=== PATIENT | male | born 1995 | race African-American/Black ===

== ENCOUNTER 2019-09-09 17:25 | Inpatient (IN) | payer MEDICAID ==
[~2019-09-09] VITALS: Ht 177.8 cm; Wt 70.3 kg
[2019-09-09] MEDS ORDERED: DOCU-141 PO (17:57)
--- NOTE | 2019-09-09 19:30 | NUR ---
TELE/RN PM OPENING NOTE REPORT RECIEVED FROM KAPIL COOPER. NO ORDERS YET FOR PATIENT. PATIENT ADMITTED EARLIER FROM [facility], PT SEEN HE IS ALERT AND ORIENTED X 4. PATIENT WITH CHEST TUBE WATER SEALED IN PLACE TO LEFT UPPER MID CHEST, IV ACCESS AT RIGHT AC # 22G PATENT AND INTACT HERE FOR DIAGNOSIS OF SPONTANEOUS PNEUMOTHORAX. PATIENT IN NO APPARENT RESPIRATORY DISTRESS ON 4LNC PATIENT HAS PRODUCTIVE COUGH AND IS USING SXN TO CLEAR ORAL AIRWAY INDEPENDENTLY. BED IN LOWEST POSITION AND LOCKED SIDE RAILS UP X2. CALL LIGHT WITH IN REACH. [facility].
--- NOTE | 2019-09-09 19:32 | NUR ---
TELE/RN CLOSING NOTES PATIENT WAS DIRECT ADMITTED FROM [facility], GET REPORT PATIENT IS ALERT AND ORIENTED X 4. INITIAL SKIN ASSESSMENT WAS INITIATED. PATIENT WITH CHEST TUBE WATER SEALED IN PLACE, IV ACCESS AT RIGHT AC # 22G PATENT AND INTACT, ALLERGY TO SHELL FISH. DIAGNOSIS OF SPONTANEOUS PNEUMOTHORAX. PATIENT IN NO APPARENT RESPIRATORY DISTRESS NOTED. BED IN LOWEST POSITION AND LOCKED SIDE RAILS UP X2. CALL LIGHT WITH IN REACH. STILL WAITING FOR MD ORDER. WILL ENDORSED TO MINE DEVELOPMENT ENGINEER FOR GARY.
--- NOTE | 2019-09-09 19:42 | NUR ---
wrecking supervisor Boubacar Mcwilliams in to see the patient. states he will be writing new orders soon.
[2019-09-09 20:00] VITALS: BP 136/62
[2019-09-09] MEDS ORDERED: ONDANSETRON HCL/PF 4 MG/2 ML VIAL IVP PRN (20:00)
[2019-09-09] MEDS ORDERED: MAGNESIUM HYDROXIDE 30 ML UDC PO PRN (20:00)
[2019-09-09] MEDS ORDERED: MAG HYDROX/AL HYDROX/SIMETH 30 ML UDC PO PRN (20:00)
[2019-09-09] MEDS ORDERED: Z GUARD REMEDY 2 OZ OINT TP PRN (20:00)
[2019-09-09] MEDS ORDERED: ZOLPIDEM TARTRATE 5 MG TABLET PO PRN (20:00)
[2019-09-09] MEDS ORDERED: ACETAMINOPHEN 325 MG TABLET PO PRN (20:00)
--- NOTE | 2019-09-09 20:29 | NUR ---
PATIENT TRANSFERRED TO [facility]. SCD APPLIED.
--- NOTE | 2019-09-09 21:45 | NUR ---
patient straight cathed 550 ml urine out.
[2019-09-09] MEDS: HYDROCODONE/APAP 10/325MG 1 EA TABLET PO PRN (22:00)
--- NOTE | 2019-09-09 22:06 | NUR ---
danie administered prn patient request for back pain 08/16.
[2019-09-09 23:15] VITALS: BP 114/56
[2019-09-09] MEDS ORDERED: PIPERACILLIN /TAZOBACTAM 3.375 G VIAL IV ONE (23:59)
[2019-09-10] MEDS ORDERED: PIPERACILLIN /TAZOBACTAM 3.375 G in IV D5W 50 ML IV SCH ×2
[2019-09-10] MEDS: ZOSYN IVPB 3.375 G in IV D5W 50ml IV SCH ×2 (00:11→05:25)
[2019-09-10] MEDS: HYDROCODONE/APAP 10/325MG 1 EA TABLET PO PRN ×3 (02:15→19:48)
[2019-09-10] MEDS ORDERED: PIPERACILLIN /TAZOBACTAM 3.375 G VIAL IV ONE (04:58)
--- NOTE | 2019-09-10 05:51 | NUR ---
patient straight cathed and produced 500 ml urine out.
--- NOTE | 2019-09-10 06:24 | NUR ---
TELE/RN PM CLOSING NOTE PT SEEN HE IS ALERT AND ORIENTED X 4. PATIENT WITH CHEST TUBE WATER SEALED IN PLACE TO LEFT UPPER MID CHEST, IV ACCESS AT RIGHT AC # 22G PATENT AND INTACT HERE FOR DIAGNOSIS OF SPONTANEOUS PNEUMOTHORAX. PATIENT IN NO APPARENT RESPIRATORY DISTRESS ON 4LNC PATIENT HAS MINOR COUGH AND HAS SXN AT BEDSIDE TO CLEAR ORAL AIRWAY INDEPENDENTLY. BED IN LOWEST POSITION AND LOCKED SIDE RAILS UP X2. PATIENT WAS STRAIGHT CATH 2X LAST NIGHT PATIENT REPORTS HE IS UNABLE TO VOID UNLESS CATHED. OUTPUT 1050 URINE COLLECTED. CALL LIGHT WITH IN REACH. BED DOWN AND LOCKED. CT HAD LESS THEN 10 ML OF DRAINAGE. WATER SEAL STILL INTACT.
[2019-09-10 06:28] LABS: BASOPHILS # (AUTO) 0.1 /CMM (0.0-0.2); BASOPHILS % (AUTO) 0.5 % (0.0-2.0); EOSINOPHILS % (AUTO) 7.9 % (0.0-6.0); HEMATOCRIT 37 % (39-51); HEMOGLOBIN 11.7 g/dL (13.5-17.5); LYMPHOCYTES # (AUTO) 1.2 /CMM (0.8-4.8); LYMPHOCYTES % (AUTO) 8.7 % (20.0-44.0); MEAN CORPUSCULAR HGB CONC 32 g/dl (31.0-36.0); MEAN CORPUSCULAR VOLUME 91 fL (80-96); MONOCYTES # (AUTO) 0.7 /CMM (0.1-1.30); MONOCYTES % (AUTO) 5.2 % (2.0-12.0); NEUTROPHILS # (AUTO) 10.7 /CMM (1.8-8.9); NEUTROPHILS % (AUTO) 77.7 % (43.0-81.0); PLATELET COUNT (AUTO) 342 /CMM (150-450); RED BLOOD CELL COUNT(AUTO) 4.05 MIL/uL (4.5-6.0); WHITE BLOOD COUNT (AUTO) 13.7 K/uL (4.3-11.0)
[2019-09-10 07:13] LABS: APPEARANCE,URINE CLEAR (CLEAR); BILIRUBIN,URINE NEGATIVE (NEGATIVE); BLOOD, URINE LARGE Ery/uL (NEGATIVE); COLOR,URINE YELLOW (YELLOW); KETONES,URINE NEGATIVE (NEGATIVE); LEUKOCYTE ESTERASE ,URINE NEGATIVE (NEGATIVE); NITRITE, URINE NEGATIVE (NEGATIVE); PROTEIN,URINE NEGATIVE (NEGATIVE); UGLUCOSE NEGATIVE (NEGATIVE); UROBILINOGEN,URINE 0.2 EU/dL (0.2)
[2019-09-10 07:41] LABS: RBC,URINE 21-50 /HPF (0-2)
[2019-09-10 07:42] LABS: BACTERIA,URINE Rare /HPF (None Seen); SQUAMOUS EPITHELIAL CELL,UR Rare /HPF (None Seen)
--- NOTE | 2019-09-10 07:46 | NUR ---
MS/RN Opening note Patient received from rn compliance. A/O X4, vital signs stable, no fevers noted. 4 liters oxygen via nasal cannula, saturation 98%, denies any shortness of breath. Left sided chest tube in place to water seal suction, dressing dry and intact. No drainage noted so far in canister. Safety measures in place, bed in low setting, side rails X3 in upright position, brakes locked. Call light within reach, will continue to monitor and ensure safety.
[2019-09-10 07:49] VITALS: BP 105/45
[2019-09-10 07:59] LABS: CALCIUM, SERUM 9.3 mg/dL (8.5-10.1); CREATININE 1.3 mg/dL (0.6-1.3); MAGNESIUM 1.8 mg/dL (1.8-2.4); PHOSPHORUS 4.9 mg/dL (2.5-4.9); POTASSIUM 3.7 mmol/L (3.5-5.1)
[2019-09-10 08:00] VITALS: BP 105/45
--- NOTE | 2019-09-10 10:15 | NUR ---
MS/RN Straight cath Patient straight cath at bedside, 400ml drainage.
--- NOTE | 2019-09-10 10:39 | NUR ---
MS/RN Chest tube Chest tube switched from water seal to wall suction as per Dr Taylor.
--- NOTE | 2019-09-10 11:00 | NUR ---
MS/RN S/B Dr Taylor Seen by MD - chest x-ray ordered for tomorrow.
--- NOTE | 2019-09-10 12:00 | NUR ---
MS/RN CXR CXR resulted as showing left sided pneumothorax 50-60%, MD aware.
[2019-09-10] MEDS: PIPERACILLIN /TAZOBACTAM 3.375 G in IV D5W 100 ML IV SCH ×2 (12:02→19:49)
--- NOTE | 2019-09-10 13:00 | NUR ---
MS/RN Straight cath Straight cath with 220 output.
[2019-09-10 16:00] VITALS: BP 100/52
--- NOTE | 2019-09-10 16:45 | NUR ---
MS/RN Straight cath Straight cath with 500ml output.
--- NOTE | 2019-09-10 18:24 | NUR ---
MS/RN End note Patient remains in stable condition. No shortness of breath, using 4l oxygen via nasal cannula, saturation >94%. Left sided chest tube to wall suction, no output noted, patient provided with yanker sucker and able to suction own mouth when needed. Skin kept clean and dry, heels off loaded on pillows to prevent any further skin breakdown. Small skin tear noted to sacrum, covered with mepilex, z-guard used. Awaiting wound care consult for further orders. Last pain medication administered at 1410 (norco 10/325mg) with good result. All needs attended, all questions and concerns addressed, will endorse to shift supervisor melting.
[2019-09-10 20:00] VITALS: BP 112/58
--- NOTE | 2019-09-10 20:00 | NUR ---
RN NOTES RECEIVED PATIENT IN BED, ALERT AND ORIENTED X4, ON ROOM AIR, NO RESPIRATORY DISTRESS, HOB ELEVATED, CHEST TUBE ATTACHED TO WALL SUCTION, ABLE TO SELF SUCTION, REQUESTING NORCO FOR PAIN OF 8/10, SEEN BY SRI PEREZ.
[2019-09-10 20:27] VITALS: BP 112/58
[2019-09-11] MEDS: PIPERACILLIN /TAZOBACTAM 3.375 G in IV D5W 100 ML IV SCH ×3 (04:08→20:04)
--- NOTE | 2019-09-11 06:01 | NUR ---
RN NOTES ALERT AND ORIENITED X4, STABLE ON ROOM AIR, 4LPM VIA NC PRN, SELF SUCTIONING, CHEST TUBE ATTACHED TO WALL SUCTION NOW, NO OUTPUT, LEFT LUNG PNEUMOTHORAX IS 50-60%, PARAPLEGIC, STRAIGHT CATH Q6HRS, CHEST XRAY TODAY, CONTINUE ZOSYN
[2019-09-11] MEDS: HYDROCODONE/APAP 10/325MG 1 EA TABLET PO PRN ×3 (06:59→23:40)
--- NOTE | 2019-09-11 07:30 | NUR ---
MS RN OPEN NOTES ALERT AND ORIENTED A/O X4. NO SIGNS OF DISTRESS AND NO SHORTNESS OF BREATH IN ROOM AIR WITH PRN 4L OF NASAL CANNULA NEEDED. PARAPLEGIC WITH CHEST TUBE ON LEFT SIDE INTACT ATTACHED ON WALL SUCTION NO OUTPUT. IV R AC#22G INTACT. BED IS IN LOW POSITION WITH SIDE RAILS UP X 2 FOR SAFETY. CALL LIGHT WITHIN REACH. WILL CONTINUE TO MONITOR.
[2019-09-11 08:25] VITALS: BP 106/56
--- NOTE | 2019-09-11 11:03 | NUR ---
ALLISON Cook double checking CT Order with Gavin MCNAIR. Please call Radiology at [phone]. [phone] to verify order.
[2019-09-11] MEDS ORDERED: POLYETHYLENE GLYCOL 3350 17 GM POWD.PACK PO PRN (11:30)
[2019-09-11] MEDS: DOCUSATE SODIUM 100 MG CAPSULE PO SCH ×2 (12:00→16:46)
[2019-09-11 12:36] LABS: BASOPHILS # (AUTO) 0.1 /CMM (0.0-0.2); BASOPHILS % (AUTO) 0.7 % (0.0-2.0); EOSINOPHILS % (AUTO) 12.6 % (0.0-6.0); HEMATOCRIT 37 % (39-51); HEMOGLOBIN 11.9 g/dL (13.5-17.5); LYMPHOCYTES # (AUTO) 1.3 /CMM (0.8-4.8); LYMPHOCYTES % (AUTO) 12.5 % (20.0-44.0); MEAN CORPUSCULAR HGB CONC 32 g/dl (31.0-36.0); MEAN CORPUSCULAR VOLUME 90 fL (80-96); MONOCYTES # (AUTO) 0.7 /CMM (0.1-1.30); MONOCYTES % (AUTO) 6.8 % (2.0-12.0); NEUTROPHILS % (AUTO) 67.4 % (43.0-81.0); PLATELET COUNT (AUTO) 311 /CMM (150-450); RED BLOOD CELL COUNT(AUTO) 4.08 MIL/uL (4.5-6.0); WHITE BLOOD COUNT (AUTO) 10.4 K/uL (4.3-11.0)
[2019-09-11 16:00] VITALS: BP 126/56
--- NOTE | 2019-09-11 18:51 | NUR ---
RN MS NOTES PT IN BED, AWAKE, ALERT AND ORIENTED, DENIES PAIN AT THIS TIME, RESPIRATIONS NORMAL, NO SOB, CHEST TUBE IN PLACE, CONNECTED TO WALL SUCTION, ASSISTED WITH DINNER, URINE CATHETERIZATION DONE ORDERED, PT TOLERATES PROCEDURE WELL, CT CHEST DONE, AWAITING RESULT, PM CARE PROVIDED, ALL NEEDS ATTENDED.
--- NOTE | 2019-09-11 19:39 | NUR ---
MS RN OPENING NOTES PATIENT AWAKE IN BED. A/OX4. ON 4L NC. NO C/O SOB; BREATHING IS EVEN AND UNLABORED. NO C/O PAIN AT THIS TIME. CHEST TUBE PRESENT ON LEFT UPPER CHEST; DRESSING INTACT; LOW CONTINUOUS WALL SUCTION AT 20 MMHG; NO DRAINAGE NOTED. IV PRESENT ON RIGHT AC, SIZE 22, INTACT & PATENT, NS RUNNING TKO. SAFETY MEASURES IN PLACE AND PATIENT'S NEEDS MET. BED LOCKED, HOB ELEVATED, SIDE RAILS X3, CALL LIGHT WITHIN REACH. WILL CONTINUE TO MONITOR.
[2019-09-11 20:00] VITALS: BP 117/57
--- NOTE | 2019-09-11 23:30 | NUR ---
MS RN NOTES STRAIGHT CATH PERFORMED WITH 600 ML OF OUTPUT; URINE CLEAR AND YELLOW.
[2019-09-11 23:40] VITALS: BP 127/67
[2019-09-12] MEDS: PIPERACILLIN /TAZOBACTAM 3.375 G in IV D5W 100 ML IV SCH ×3 (04:17→19:42)
--- NOTE | 2019-09-12 05:30 | NUR ---
MS RN NOTES STRAIGHT CATH PERFORMED WITH 550 ML OF OUTPUT; URINE CLEAR AND YELLOW
--- NOTE | 2019-09-12 06:30 | NUR ---
MS RN NOTES PATIENT C/O FEELING UNWELL, HOWEVER IS UNABLE TO ELABORATE FURTHER. DENIES PAIN OR NAUSEA. PATIENT APPEARS TO BE RESTLESS AND AGITATED. VITAL SIGNS - BP: 118/60, HR: 72, RR: 20; SPO2: 97% ON RA, TEMP: 97.6; BLOOD GLUCOSE: 109. CHEST TUBE REMAINS INTACT AND PATENT. WILL CONTINUE TO MONITOR.
--- NOTE | 2019-09-12 06:47 | NUR ---
MS RN NOTES PATIENT REFUSED AM LABS AT THIS TIME
--- NOTE | 2019-09-12 07:45 | NUR ---
MS RN CLOSING NOTES PATIENT SLEEPING IN BED. STABLE ON RA. NO S/S OF ACUTE RESPIRATORY DISTRESS; BREATHING IS EVEN AND UNLABORED. CHEST TUBE PRESENT ON LEFT UPPER CHEST REMAINS INTACT; CONNECTED TO LOW CONTINUOUS WALL SUCTION AT 20 MMHG; NO DRAINAGE PRESENT. IV PRESENT ON RIGHT AC, SIZE 22, INTACT & PATENT, IVPB ZOSYN RUNNING AT 25 ML/HR. SAFETY MEASURES IN PLACE AND PATIENT'S NEEDS MET. BED LOCKED, HOB ELEVATED, SIDE RAILS X3, CALL LIGHT WITHIN REACH. WILL ENDORSE TO DAY SHIFT NURSE PLAN OF CARE.
--- NOTE | 2019-09-12 07:45 | NUR ---
MS RN OPENING NOTES PATIENT SLEEPING IN BED HOB ^. STABLE ON RA. NO S/S OF ACUTE RESPIRATORY DISTRESS; BREATHING IS EVEN AND UNLABORED. CHEST TUBE ON LEFT UPPER CHEST REMAINS INTACT; CONNECTED TO LOW CONTINUOUS WALL SUCTION AT 20 MMHG; NO DRAINAGE PRESENT. IV PRESENT ON RIGHT AC, SIZE 22, INTACT & PATENT,SAFETY MEASURES IN PLACE AND PATIENT'S NEEDS MET. BED LOCKED, HOB ELEVATED, SIDE RAILS X3, CALL LIGHT WITHIN REACH. WILL CONTINUO PLAN OF CARE.
[2019-09-12 08:00] VITALS: BP 130/67
[2019-09-12] MEDS: DOCUSATE SODIUM 100 MG CAPSULE PO SCH ×2 (09:25→17:02)
--- NOTE | 2019-09-12 10:51 | NUR ---
WOUND CARE CONSULT: PT PRESENTS WITH CHEST TUBE, RT BUTTOCK STAGE 3 ULCER, SACRAL DEEP TISSUE INJURY(INTACT), LEFT POSTERIOR ANKLE SCAR AND DISCOLORATION/CALLUS TO BILATERAL LATERAL FEET, PRESENT ON ADMISSION. RECOMMEND SURGICAL CONSULT. DR BERG NOTIFIED OF CONSULT REQUEST. RECOMMENDATIONS MADE FOR SKIN PROTECTION. DISCUSSED WITH NURSING STAFF. PT IS ON [facility] LOW AIRLOSS BED. WILL SEE PRN. MCNAIR IN AGREEMENT WITH PLAN OF CARE. Addendum: 09/12/19 at 1053 by DIAZ SANABRIA WNDNU Amended: Links added.
[2019-09-12] MEDS: POLYETHYLENE GLYCOL 3350 17 GM POWD.PACK PO SCH (11:20)
[2019-09-12 11:45] LABS: BASOPHILS % (AUTO) 0.2 % (0.0-2.0); EOSINOPHILS % (AUTO) 5.1 % (0.0-6.0); HEMATOCRIT 41 % (39-51); LYMPHOCYTES # (AUTO) 0.9 /CMM (0.8-4.8); LYMPHOCYTES % (AUTO) 6.5 % (20.0-44.0); MEAN CORPUSCULAR HGB CONC 32 g/dl (31.0-36.0); MEAN CORPUSCULAR VOLUME 89 fL (80-96); MONOCYTES # (AUTO) 0.8 /CMM (0.1-1.30); MONOCYTES % (AUTO) 5.6 % (2.0-12.0); NEUTROPHILS # (AUTO) 11.9 /CMM (1.8-8.9); NEUTROPHILS % (AUTO) 82.6 % (43.0-81.0); PLATELET COUNT (AUTO) 331 /CMM (150-450); RED BLOOD CELL COUNT(AUTO) 4.55 MIL/uL (4.5-6.0); WHITE BLOOD COUNT (AUTO) 14.4 K/uL (4.3-11.0)
[2019-09-12 12:07] LABS: CALCIUM, SERUM 9.4 mg/dL (8.5-10.1); CREATININE 1.5 mg/dL (0.6-1.3); MAGNESIUM 1.9 mg/dL (1.8-2.4); PHOSPHORUS 5.7 mg/dL (2.5-4.9); POTASSIUM 4.5 mmol/L (3.5-5.1)
[2019-09-12] MEDS: HYDROCODONE/APAP 10/325MG 1 EA TABLET PO PRN (13:59)
[2019-09-12] MEDS: IV NS 0.9% 1,000 ML IV PRN (14:01)
[2019-09-12] MEDS: HYDROGEL DRESSING 90 GM TUBE TP SCH (15:30)
[2019-09-12 16:00] VITALS: BP 114/53
[2019-09-12] MEDS ORDERED: LACTULOSE 10 G/15 ML UDC (PYXIS) PO ONE (17:30)
[2019-09-12] MEDS ORDERED: SORBITOL SOLUTION 30 ML PO ONE (17:30)
--- NOTE | 2019-09-12 19:45 | NUR ---
MS RN NOTES PATIENT IN BED RESTING NO SOB OR ACUTE DISTRESS NOTED. ALL DUE MEDICATIONS ADMINISTERED. ALL NEEDS MET. PATIENTS CHEST TUBE INTACT PATENT. NO DRAINAGE NOTED. NO ACUTE CHANGES DURING SHIFT. ENDORSED CARE TO PM SHIFT.
[2019-09-12 20:00] VITALS: BP 104/52
--- NOTE | 2019-09-12 20:00 | NUR ---
MS RN OPENING NOTE: Patient in bed sleeping comfortably; easily arousable. O2 sat 96%. No S/S of respiratory distress. Breathing is even and unlabored. Chests tube on left upper chest intact, connected to low continuous wall suction at 20MMHG; no drainage at this time. IV on right AC #22; patent, no redness, or infiltration. Safety measure in place; bed in lowest position, side rails x 2 are up, brakes are on, alarm is on, and call light is within reach. Will continue care of plan.
[2019-09-13] MEDS: PIPERACILLIN /TAZOBACTAM 3.375 G in IV D5W 100 ML IV SCH ×2 (04:20→12:11)
--- NOTE | 2019-09-13 06:00 | NUR ---
MS RN CLOSING NOTE: Patient in bed sleeping comfortably; easily arousable. No S/S of respiratory distress. Breathing is even and unlabored. Safety measure in place; bed in lowest position, side rails x 2 are up, brakes are on, alarm is on, and call light is within reach. Will endorse to next shift.
[2019-09-13 08:00] VITALS: BP 118/60
--- NOTE | 2019-09-13 08:00 | NUR ---
MS/RN - Assessment Patient is A/O x 4, states he feels better, no complaints overnight, afebrile, currently on room air, SpO2 95-96%, lungs clear to auscultation on upper lobes and diminished on lower lobes. Left anterior chest wall Heimlich valve in position, connected to atrium 20 cm of dry water seal suction. Labs reviewed, no critical results noted. Patient updated on plan of care. Will continue to monitor closely.
[2019-09-13] MEDS: POLYETHYLENE GLYCOL 3350 17 GM POWD.PACK PO SCH (08:09)
[2019-09-13] MEDS: HYDROGEL DRESSING 90 GM TUBE TP SCH (08:10)
[2019-09-13] MEDS: DOCUSATE SODIUM 100 MG CAPSULE PO SCH ×2 (08:10→16:50)
[2019-09-13] MEDS: HYDROCODONE/APAP 10/325MG 1 EA TABLET PO PRN ×2 (08:35→18:31)
[2019-09-13 08:41] LABS: BASOPHILS # (AUTO) 0.1 /CMM (0.0-0.2); BASOPHILS % (AUTO) 0.7 % (0.0-2.0); EOSINOPHILS % (AUTO) 11.4 % (0.0-6.0); HEMATOCRIT 35 % (39-51); HEMOGLOBIN 11.6 g/dL (13.5-17.5); LYMPHOCYTES # (AUTO) 1.8 /CMM (0.8-4.8); LYMPHOCYTES % (AUTO) 17.1 % (20.0-44.0); MEAN CORPUSCULAR HGB CONC 33 g/dl (31.0-36.0); MEAN CORPUSCULAR VOLUME 90 fL (80-96); MONOCYTES # (AUTO) 0.6 /CMM (0.1-1.30); MONOCYTES % (AUTO) 6.1 % (2.0-12.0); NEUTROPHILS # (AUTO) 6.7 /CMM (1.8-8.9); NEUTROPHILS % (AUTO) 64.7 % (43.0-81.0); PLATELET COUNT (AUTO) 300 /CMM (150-450); RED BLOOD CELL COUNT(AUTO) 3.91 MIL/uL (4.5-6.0); WHITE BLOOD COUNT (AUTO) 10.4 K/uL (4.3-11.0)
[2019-09-13 08:58] LABS: CALCIUM, SERUM 9.2 mg/dL (8.5-10.1); CREATININE 1.1 mg/dL (0.6-1.3); MAGNESIUM 2.1 mg/dL (1.8-2.4); PHOSPHORUS 4.4 mg/dL (2.5-4.9); POTASSIUM 4.1 mmol/L (3.5-5.1)
--- NOTE | 2019-09-13 09:00 | NUR ---
MS/RN - Notes Chest tube clamped at 08:45. Patient denies shortness of breath, lungs clear, comfortable on room air saturating 100%, BP 105/64 HR 81, will do CXR after 2 hours as ordered.
--- NOTE | 2019-09-13 10:00 | NUR ---
MS/RN - Notes Patient is A/O X 4, denies shortness of breath, breathing is even and unlabored, comfortable on room air saturating 98-100%, RR 16, lungs clear on auscultation on upper and diminished on lower. Will continue to monitor closely.
--- NOTE | 2019-09-13 12:30 | NUR ---
MS/RN - Notes Patient is A/O X 4, denies shortness of breath, breathing is even and unlabored, comfortable on room air saturating 100%, RR 18, lungs clear on auscultation, VSS, no c/o pain. Will continue to monitor closely.
[2019-09-13 16:00] VITALS: BP 120/61
--- NOTE | 2019-09-13 16:45 | NUR ---
MS/RN - r/o Covid (SNF placement) Covid specimen was collected and sent to the lab. Contact and droplet precautions initiated.
[2019-09-13] MEDS: IV NS 0.9% 1,000 ML IV PRN (18:16)
--- NOTE | 2019-09-13 18:51 | NUR ---
MS/RN - End of shift summary No significant change in condition seen, denies shortness of breath, breathing is even and unlabored, comfortable on room air saturating 96%, RR 17, lungs clear on auscultation, generalized chest pain managed by [place], given twice this shift. Per Dr. Keita, continue with clamping of Heimlich valve, follow-up chest x-ray tomorrow and then will decide regarding timing of pulling out the chest tube. Straight cath done Q6H as ordered, total urine output obtained was 1200 ml of clear yellow urine. Continue droplet and contact precautions for r/o Covid. Will continue with current plan of care.
--- NOTE | 2019-09-13 19:15 | NUR ---
RN nbasurgustavo opening notes Received Pt from morning nurse. Pt is sitting in bed comfortably watching TV. Pt is alert and orientedX4. Respiration is normal in room air. No SOB. No S/S of distress noted. Pt denies any pain or discomfort at this time. IV sites at R hand is clean, intact and infusing well NS @ 60 ml/hr. L chest tube is clean, intact and the heimlich valve is clampped. Per am nurse MD ordered to clamping the heimlich valve. Safety precautions is maintained. Isolation precautions is maintained for R/O covid. Bed at low position, brakes locked, side rails upX3, bed alarm is on, call light is within reach. Will continue to monitor.
[2019-09-13 20:00] VITALS: BP 106/48
--- NOTE | 2019-09-14 | NUR ---
RN medsurgustavo notes Straight cath performed with urine output 500 ml clear yellow urine. Pt tolerated activity well.
[2019-09-14] MEDS: HYDROCODONE/APAP 10/325MG 1 EA TABLET PO PRN ×2 (05:36→21:35)
--- NOTE | 2019-09-14 05:39 | NUR ---
RN medsurg notes Pt is complaining of generalized pain and requesting pain meds. Administered norco 10-325/po as ordered for pain per pt request. Safety precautions is maintained. Will continue to monitor.
--- NOTE | 2019-09-14 06:00 | NUR ---
ALLISON cervantes notes Straight cath performed with good urine output 800 ml clear yellow urine. Pt tolerated activity well.
--- NOTE | 2019-09-14 06:53 | NUR ---
RN medsurg closing notes Pt is resting in bed comfortably. Pt is alert and orientedX4. Respiration is normal in room air. No SOB. No S/S of distress noted. VS is stable. Afebrile. Routine meds were given as ordered. IV sites at R hand is clean, intact and infusing well NS @ 60 ml/hr. L chest tube is clean, intact and the heimlich valve is clampped. Safety precautions is maintained. Isolation precautions is maintained for R/O covid. Bed at low position, brakes locked, side rails upX3, bed alarm is on, call light is within reach. Will endorse to morning nurse for GARY.
--- NOTE | 2019-09-14 07:45 | NUR ---
MS RN OPENING NOTES PATIENT IN BED RESTING COMFORTABLY. PATIENT IN NO ACUTE DISTRESS. NO SOB NOTED. PATIENT BREATHING IS EVEN AND UNLABORED. PATIENT WITH LEFT CHEST TUBE CLEAN AND INTACT WITH HEIMLICH VALVE CLAMPED. SAFETY PRECAUTIONS IN PLACE. BED ALARM IS ON. HOB IS ELEVATED. PATIENT RESPONSIVE TO TACTILE AND VERBAL RESPONSE. PATIENT BED IS LOCKED AND IN LOWEST POSITION. CALL LIGHT WITHIN REACH. WILL CONTINUE TO MONITOR.
[2019-09-14 08:00] VITALS: BP 115/58
[2019-09-14] MEDS: POLYETHYLENE GLYCOL 3350 17 GM POWD.PACK PO SCH (08:40)
[2019-09-14] MEDS: DOCUSATE SODIUM 100 MG CAPSULE PO SCH ×2 (08:40→17:26)
--- NOTE | 2019-09-14 08:40 | NUR ---
MS RN NOTES PATIENT REFUSING MIRALAX 0900. EDUCATED RISKS VS BENEFITS. PATIENT CONTINUED TO REFUSE.
[2019-09-14] MEDS: HYDROGEL DRESSING 90 GM TUBE TP SCH (08:41)
--- NOTE | 2019-09-14 14:04 | NUR ---
MS RN NOTE PATIENT CHEST TUBE REMOVED WITH DR. NEVES. WITH OIL EMULSION AND DRY DRESSING APPLIED BY DR. NEVES AT SITE OF REMOVAL. TAPED TO 3 SIDES. PATIENT TOLERATED WELL. PATIENT IN NO ACUTE DISTRESS. WILL CONTINUE TO MONITOR.
[2019-09-14] MEDS: IV NS 0.9% 1,000 ML IV PRN (18:47)
--- NOTE | 2019-09-14 19:15 | NUR ---
MS RN CLOSING NOTES PATIENT IN BED RESTING COMFORTABLY. PATIENT IN NO ACUTE DISTRESS. NO SOB NOTED. PATIENT BREATHING IS EVEN AND UNLABORED. PATIENT CHEST TUBE SITE OF REMOVAL DRESSING IS INTACT. PATIENT STATES NO PAIN AT THIS TIME. PATIENT TURNED AND REPOSITIONED Q2H. PATIENT KEPT CLEAN, DRY AND COMFORTABLE THROUGHOUT SHIFT. SAFETY PRECAUTIONS IN PLACE. BED ALARM IS ON. HOB IS ELEVATED. PATIENT BED IS LOCKED AND IN LOWEST POSITION. CALL LIGHT WITHIN REACH. WILL ENDORSE CARE TO PM SHIFT FOR GARY.
--- NOTE | 2019-09-14 19:45 | NUR ---
MS RN NOTES RECEIVED ON BED A/O X4, TALKING TO SOMEONE ON THE PHONE.BREATHING EASY,DENIES SOB.IVF NS AT 60ML/HR RATE INFUSING ON RIGHT HAND,SITE PATENT.DVT PUMP IN USED FOR DVT PROPHYLAXIS.DRESSING TO LEFT CHEST SITE INTACT AND DRY.NO BLEEDING NOTED.CALL LIGHT IN REACH,NEEDS ANTICIPATED.
[2019-09-14 20:00] VITALS: BP 127/76
[2019-09-14 20:23] VITALS: BP 127/76
--- NOTE | 2019-09-14 21:30 | NUR ---
MS RN NOTES PATIENT SAYS URINE IS COMING OUT FROM THE PENIS,NOTED BLADDER DISTENDED AND DRIBBLING URINE FROM THE PENIS.ST CATH DONE PER PATIENT REQUEST AND TOOK OUT 80OML CLEAR YELLOW URINE.PATIENT SAYS HE FEELS BETTER.
--- NOTE | 2019-09-14 21:35 | NUR ---
MS RN NOTES PAIN MANAGEMENT C/O PAIN ON RIGHT SHOULDER 8/10 ON PAIN SCALE.MEDICATED WITH NORCO 10/325MG, 1 TAB PO ORDERED.
--- NOTE | 2019-09-15 03:10 | NUR ---
MS RN NOTES AWAKE,BLADDER FULL,ST CATH DONE OBTAINED 450ML CLEAR YELLOW URINE.
--- NOTE | 2019-09-15 06:11 | NUR ---
MS RN NOTES SLEPT WITH INTERVALS,ST CATH DONE,OUTPUT DOCUMENTED.COVID TEST NEGATIVE.NO EPISODE OF SOB.DRESSING TO LEFT CHEST TUBE SITE INTACT AND DRY.IN NO ACUTE DISTRESS.POSSIBLE DISCHARGE TO REHAB TODAY.
[2019-09-15] MEDS: HYDROCODONE/APAP 10/325MG 1 EA TABLET PO PRN (07:51)
[2019-09-15 08:00] VITALS: BP 114/64
[2019-09-15] MEDS: POLYETHYLENE GLYCOL 3350 17 GM POWD.PACK PO SCH (08:52)
[2019-09-15] MEDS: DOCUSATE SODIUM 100 MG CAPSULE PO SCH (08:52)
[2019-09-15] MEDS: HYDROGEL DRESSING 90 GM TUBE TP SCH (09:19)
--- NOTE | 2019-09-15 17:24 | NUR ---
rn notes patient dc at this time, no sob noted, patient going home. nothing missing. patient only wanted one try for the photo. printed and is in the chart. patient had no questions regarding discharge. Has bed waiting to arrive tomorrow. IV lines removed and has minimal bleeding. patient stated that he has every item he has, and nothing is missing.
== END 2019-09-15 17:20 | disposition home or self-care (01) | DRG 143 ==
LOC: TELE 17:25 → MED 09-10 16:44
PROVIDERS: ADMIT Nurse Practitioner Acute Care; ATTEND Internal Medicine
DX: J93.11 Primary spontaneous pneumothorax (principal); G82.20 Paraplegia, unspecified; S22.32XA Fracture of one rib, left side, initial encounter for closed fracture; N39.0 Urinary tract infection, site not specified; X58.XXXA Exposure to other specified factors, initial encounter; Y92.9 Unspecified place or not applicable; N31.9 Neuromuscular dysfunction of bladder, unspecified; D68.69 Other thrombophilia; L89.313 Pressure ulcer of right buttock, stage 3; L89.156 Pressure-induced deep tissue damage of sacral region; Y93.9 Activity, unspecified; Y92.009 Unspecified place in unspecified non-institutional (private) residence as the place of occurrence of the external cause; D63.8 Anemia in other chronic diseases classified elsewhere; F12.90 Cannabis use, unspecified, uncomplicated; Z83.3 Family history of diabetes mellitus; W34.00XS Accidental discharge from unspecified firearms or gun, sequela; S22.021 Stable burst fracture of second thoracic vertebra; R65.10 Systemic inflammatory response syndrome (SIRS) of non-infectious origin without acute organ dysfunction
CPT/HCPCS: 36415; 71045-TC; 71250-TC; 80048-TC; 81000-TC; 82962-TC; 83735-TC; 84100-TC; 85025-TC; 87040-TC; 87081-TC; 87086-TC; 97110-TC; 97112-TC; A6248; G0378; J2543; J7030; J7050; J7060; U0003-CS

== ENCOUNTER 2019-09-27 15:36 | Emergency (ER) | payer MEDICAID ==
[~2019-09-27] VITALS: Ht 182.9 cm; Wt 68.5 kg
[~2019-09-27 15:36] MED LIST: DOCU-141 PO
--- NOTE | 2019-09-27 15:45 | NUR ---
[facility] from home "lower abdominal/bladder pain - usually have cath done but ran out of supply. On room air, breathing evenly and unlabored. Connected to the monitor and pulse ox. kept comfortable, will continue to monitor accordingly.
[2019-09-27 16:23] LABS: BASOPHILS # (AUTO) 0.1 /CMM (0.0-0.2); BASOPHILS % (AUTO) 0.7 % (0.0-2.0); HEMATOCRIT 41 % (39-51); HEMOGLOBIN 13.2 g/dL (13.5-17.5); LYMPHOCYTES # (AUTO) 1.2 /CMM (0.8-4.8); LYMPHOCYTES % (AUTO) 17.7 % (20.0-44.0); MEAN CORPUSCULAR HGB CONC 32 g/dl (31.0-36.0); MEAN CORPUSCULAR VOLUME 89 fL (80-96); MONOCYTES # (AUTO) 0.4 /CMM (0.1-1.30); MONOCYTES % (AUTO) 6.3 % (2.0-12.0); NEUTROPHILS # (AUTO) 4.3 /CMM (1.8-8.9); NEUTROPHILS % (AUTO) 63.3 % (43.0-81.0); PLATELET COUNT (AUTO) 360 /CMM (150-450); WHITE BLOOD COUNT (AUTO) 6.8 K/uL (4.3-11.0)
--- NOTE | 2019-09-27 16:23 | NUR ---
urine collected and sent to lab
[2019-09-27 16:27] LABS: APPEARANCE,URINE Slightly Cloudy (CLEAR); BILIRUBIN,URINE Negative (NEGATIVE); BLOOD, URINE Trace-lysed Ery/uL (NEGATIVE); COLOR,URINE Yellow (YELLOW); KETONES,URINE Negative (NEGATIVE); LEUKOCYTE ESTERASE ,URINE Trace (NEGATIVE); NITRITE, URINE Positive (NEGATIVE); PROTEIN,URINE Trace mg/dl (NEGATIVE); UGLUCOSE Negative (NEGATIVE)
[2019-09-27 16:28] LABS: CALCIUM, SERUM 9.2 mg/dL (8.5-10.1); POTASSIUM 4.1 mmol/L (3.5-5.1)
[2019-09-27 16:34] LABS: BILIRUBIN,DIRECT 0.1 mg/dL (0.0-0.2); BILIRUBIN,TOTAL 0.2 mg/dL (0.2-1.0); TOTAL PROTEIN, SERUM 7.6 g/dL (6.4-8.2)
[2019-09-27 16:44] LABS: BACTERIA,URINE Many /HPF (None Seen); SQUAMOUS EPITHELIAL CELL,UR Few /HPF (None Seen)
[2019-09-27] MEDS ORDERED: CEFTRIAXONE 1GM BAG (ER ONLY) 50 ML IV ONE (17:24)
[2019-09-27] MEDS ORDERED: CEFTRIAXONE 1GM BAG (ER ONLY) 1 GM/50 ML PIGGYBACK IV ONE (17:30)
[2019-09-27] MEDS ORDERED: IV NS 0.9% 1,000 ML IV ONE (17:30)
--- NOTE | 2019-09-27 18:58 | NUR ---
[facility] ETA 2030
--- NOTE | 2019-09-27 20:30 | NUR ---
PT WAS PICKED UP BY JOB AND WAS DISCHARGED IN HOME IN STABLE CONDITION. ALL BELONGINGS PICKED UP BY THE PT INCLUDING EXTRA URINARY CATHS. Rx and Written and verbal after care instructions given. Patient verbalizes understanding of instruction.
[2019-09-27 20:47] VITALS: BP 127/66
== END 2019-09-27 20:30 | disposition home or self-care (01) ==
LOC: ER 15:38
DX: N39.0 Urinary tract infection, site not specified (principal); E86.0 Dehydration; M54.5 Low back pain; G89.29 Other chronic pain; Z98.890 Other specified postprocedural states; Z91.013 Allergy to seafood; Z79.899 Other long term (current) drug therapy
CPT/HCPCS: 36415; 80048; 80076; 81001; 83690; 85025; 87077; 87086; 87186; 96365; 99284; J0696; J7030; 81000-TC